=== PATIENT | female | born 1980 | race Caucasian/White ===

== ENCOUNTER 2021-12-27 09:04 | Outpatient (CLI) | payer BC | END 2021-12-27 09:05 | disposition home or self-care (01) | LOC: CSHMRI 09:04 | PROVIDERS: ATTEND Family Medicine | DX: M25.512 Pain in left shoulder (principal); M12.9 Arthropathy, unspecified; M75.42 Impingement syndrome of left shoulder; M62.89 Other specified disorders of muscle; M75.112 Incomplete rotator cuff tear or rupture of left shoulder, not specified as traumatic ==